=== PATIENT | female | born 1950 | race Caucasian/White ===

== ENCOUNTER 2017-12-22 08:49 | Outpatient (CLI) | payer BC | END 2017-12-22 08:50 | disposition home or self-care (01) | LOC: BICMAMMO 08:49 | PROVIDERS: ATTEND Internal Medicine | DX: Z12.31 Encounter for screening mammogram for malignant neoplasm of breast (principal); Z80.3 Family history of malignant neoplasm of breast | CPT/HCPCS: 77063; 77067 ==

== ENCOUNTER 2019-02-20 08:49 | Outpatient (CLI) | payer MEDICARE ==
--- NOTE | 2019-02-20 10:14 | MMO ---
Bilateral MAMMO Bilat Screen [facility]. CLINICAL HISTORY: Patient is 68 years old and is seen for screening. The patient has the following family history of breast cancer: cousin female, malignant (generic). The patient has no personal history of cancer. The patient has a history of left Stereotatic Biopsy in Nov, 2016 - benign. VIEWS: The views performed were: bilateral craniocaudal with tomosynthesis and bilateral mediolateral oblique with tomosynthesis. FILMS COMPARED: The present examination has been compared to prior imaging studies performed at [facility] on 03/07/2016, 10/21/2016, 05/29/2017 and 12/22/2017. MAMMOGRAM FINDINGS: There are scattered fibroglandular densities. Finding 1: There are stable benign appearing calcifications seen in both breasts. Finding 2: There is a stable biopsy clip seen in the left breast. Finding 3: There are multiple stable nodules of varying size seen in both breasts. There are no suspicious masses, suspicious calcifications, or new areas of architectural distortion. IMPRESSION: THERE IS NO MAMMOGRAPHIC EVIDENCE OF MALIGNANCY. A ROUTINE FOLLOW-UP MAMMOGRAM IN 1 YEAR IS RECOMMENDED. THE RESULTS OF THIS EXAM WERE SENT TO THE PATIENT. ACR BI-RADS Category 2 - Benign finding MAMMOGRAPHY NOTE: 1. A negative mammogram report should not delay a biopsy if a dominant of clinically suspicious mass is present. 2. Approximately 10% to 15% of breast cancers are not detected by mammography. 3. Adenosis and dense breasts may obscure an underlying neoplasm. Reported by: RONNIE CELAYA MD Electonically Signed: [id number]
== END 2019-02-20 08:50 | disposition home or self-care (01) ==
LOC: BICMAMMO 08:49
PROVIDERS: ATTEND Internal Medicine
DX: Z12.31 Encounter for screening mammogram for malignant neoplasm of breast (principal); Z80.3 Family history of malignant neoplasm of breast; Z91.89 Other specified personal risk factors, not elsewhere classified
CPT/HCPCS: 77063; 77067

== ENCOUNTER 2019-09-11 09:39 | Outpatient (CLI) | payer MEDICARE ==
--- NOTE | 2019-09-11 11:46 | BD ---
BONE DENSITOMETRY USING DEXA: Date: 09/11/2019 HISTORY: Postmenopausal screening for osteoporosis. FINDINGS: Lumbar Spine: BMD (g/cm2) L1 0.780 T-Score: -1.9 Z-Score: 0.0 L2 0.797 T-Score: -2.1 Z-Score: 0.0 L3 0.971 T-Score: -1.0 Z-Score: 1.2 L4 0.999 T-Score: -0.6 Z-Score: 1.7 L1-L4 0.891 T-Score: -1.4 Z-Score: 0.8 Femoral Neck: 0.659 T-Score: -1.7 Z-Score: 0.1 Total Femur: 0.869 T-Score: -0.6 Z-Score: 1.0 The 10 year fracture risk for a major osteoporotic fracture is 11% and for a hip fracture is 3%. IMPRESSION: Osteopenia. POS: [facility]
== END 2019-09-11 09:40 | disposition home or self-care (01) ==
LOC: BICMAMMO 09:39
PROVIDERS: ATTEND Internal Medicine
DX: M81.0 Age-related osteoporosis without current pathological fracture (principal); M85.89 Other specified disorders of bone density and structure, multiple sites
CPT/HCPCS: 77080

== ENCOUNTER 2020-03-05 10:12 | Outpatient (CLI) | payer MEDICARE ==
--- NOTE | 2020-03-05 11:13 | MMO ---
Left Breast MAMMO Unilat Diag [facility]. CLINICAL HISTORY: Patient is 69 years old and is seen for additional evaluation requested from prior study. The patient has the following family history of breast cancer: cousin female, malignant (generic). The patient has no personal history of cancer. The patient has a history of left Stereotatic Biopsy in Nov, 2016 - benign. VIEWS: The views performed were: left craniocaudal spot compression magnification; left mediolateral spot compression magnification; and left mediolateral with tomosynthesis. FILMS COMPARED: The present examination has been compared to prior imaging studies performed at [facility] on 05/29/2017, 12/22/2017, 02/20/2019 and 02/24/2020. This study has been interpreted with the assistance of computer-aided detection. MAMMOGRAM FINDINGS: There are scattered fibroglandular densities. There are two groups of amorphous or indistinct calcifications with grouped or clustered distribution seen in the upper-outer region of the left breast. IMPRESSION: CALCIFICATIONS IN THE LEFT BREAST ARE SUSPICIOUS. A STEREOTACTIC BREAST BIOPSY IS RECOMMENDED. 2 GROUPS OF CALCIFICATION 1.3 CM APART , CALCIFICATIONS HAVE INCREASED FINDINGS AND RECOMMENDATIONS WERE DISCUSSED WITH THE PATIENT PRIOR TO LEAVING THE FACILITY. ALL QUESTIONS ANSWERED. THE RESULTS OF THIS EXAM WERE SENT TO THE PATIENT. ACR BI-RADS Category 4 - Suspicious abnormality - biopsy should be considered MAMMOGRAPHY NOTE: 1. A negative mammogram report should not delay a biopsy if a dominant of clinically suspicious mass is present. 2. Approximately 10% to 15% of breast cancers are not detected by mammography. 3. Adenosis and dense breasts may obscure an underlying neoplasm. Reported by: ANGELITA GRIJALVA MD Electonically Signed: [id number]
== END 2020-03-05 10:13 | disposition home or self-care (01) ==
LOC: BICMAMMO 10:12
PROVIDERS: ATTEND Family Medicine
DX: R92.1 Mammographic calcification found on diagnostic imaging of breast (principal)
CPT/HCPCS: 77065; G0279

== ENCOUNTER → 2020-03-11 | Day surgery (SDC) | payer MEDICARE ==
--- NOTE | 2020-03-11 08:56 | MMO ---
PROCEDURE: MAMMO Brst Bx Stereo Left breast biopsy marker clip placement PROVIDED CLINICAL HISTORY: Microcalcifications in the upper outer left breast. Stereotactic guided breast biopsy was recommended . COMPARISON: 03/05/2020 02/24/2020 TECHNIQUE: After informed consent was obtained, the patient was placed on the stereotactic guided breast biopsy table in the prone position. There are 2 clusters of microcalcifications noted in the upper outer left breast. More anteriorly located cluster of microcalcifications were localized utilizing stereota ctic guidance. An area was meticulously prepped and usual fashion. Skin and subcutaneous tissues were infiltrated with buffered 1% lidocaine with epinephrine for local anesthesia. Small skin incision was made. A 10-gauge stereotactic guided breast biopsy needle was advanced followed by additional imaging. The needle was further advanced, and imaging was again perfo rmed. A total of six 10-gauge core needle biopsy specimens were obtained. Specimen mammogram was performed demonstrating multiple microcalcifications within the provided speci men. As result, a biopsy marker clip was deployed at site of biopsy. Needle was removed, and hemostasis was achieved with direct pressure. Post procedure CC and MLO views left breast were performed. These images demonstrate that the biopsy marker clip is located 2.7 cm inferior to the level of microcalcifications. IMPRESSION: 1. Technically successful stereotactic guided biopsy of left breast microcalcifications in the upper outer left breast. More anteriorly located cluster of microcalcifications were localized and biopsied. The more posteriorly located calcifications were not biopsied at this time. 2. Technically successful biopsy marker clip at site of biopsy left breast. As noted above, the biops y clip is located 2.7 cm just inferior to the level of biopsy site and area of previously seen microcalcifications which are decreased in number.
--- NOTE | 2020-03-11 08:57 | MMO ---
EXAM: MAMMO Surgial Specimen left breast PROVIDED CLINICAL HISTORY: Cluster of microcalcifications upper outer left breast. Patient is posterior tenting guided breast bi opsy. COMPARISON: Mammograms on 02/24/2020 and 03/05/2020 as well as stereotactic guided breast biopsy images obtained on this date. FINDINGS/IMPRESSION: Single provided specimen mammogram from stereotactic guided biopsy left breast demonstrates multiple calcifications within the provided specimen.
--- NOTE | 2020-03-11 09:01 | MMO ---
EXAM: MAMMO Diag Post Proc Ltd Lt PROVIDED CLINICAL HISTORY: Patient is post stereotactic guided biopsy of microcalcifications upper outer left breast with biopsy marker clip placement. COMPARISON: 02/24/2020 FINDINGS: Post biopsy changes are seen in the upper outer left breast. Two separate clusters of microcalcificat ions were seen in the upper outer left breast. Biopsy was performed of the more anteriorly located cluster of microcalcifications. There has been interval decrease in number of microcalcifications inv olving the more anteriorly located cluster of microcalcifications in the upper outer left breast. Biopsy marker clip is now seen at site of biopsy. However, the biopsy marker clip is noted to be appr oximately 2.7 cm inferior to the site of biopsy. IMPRESSION: Post biopsy mammogram demonstrates biopsy marker clip in place, but the biopsy marker clip is located 2.7 cm inferior to the level of site of biopsy and previously seen microcalcifications which are now decreased in number.
== END ==
LOC: MAMMO 07:03
PROVIDERS: ATTEND Family Medicine
PROC: 0HBU3ZX Excision of Left Breast, Percutaneous Approach, Diagnostic (ICD-10-PCS; principal; 2020-03-11)
DX: N63.21 Unspecified lump in the left breast, upper outer quadrant (principal); R92.0 Mammographic microcalcification found on diagnostic imaging of breast
CPT/HCPCS: 19081; 76098; 88305

== ENCOUNTER 2021-04-21 09:01 | Outpatient (CLI) | payer MEDICARE | END 2021-04-21 09:02 | disposition home or self-care (01) | LOC: BICMAMMO 09:01 | PROVIDERS: ATTEND Family Medicine | DX: Z12.31 Encounter for screening mammogram for malignant neoplasm of breast (principal); Z91.89 Other specified personal risk factors, not elsewhere classified; Z80.3 Family history of malignant neoplasm of breast | CPT/HCPCS: 77063; 77067 ==

== ENCOUNTER 2022-05-30 08:25 | Outpatient (CLI) | payer MEDICARE | END 2022-05-30 08:26 | disposition home or self-care (01) | LOC: BICMAMMO 08:25 | PROVIDERS: ATTEND Family Medicine | DX: Z12.31 Encounter for screening mammogram for malignant neoplasm of breast (principal); Z91.89 Other specified personal risk factors, not elsewhere classified; Z80.3 Family history of malignant neoplasm of breast | CPT/HCPCS: 77063; 77067 ==

== ENCOUNTER 2023-07-26 12:37 | Outpatient (CLI) | payer MEDICARE | END 2023-07-26 12:38 | disposition home or self-care (01) | LOC: BICMAMMO 12:37 | PROVIDERS: ATTEND Family Medicine | DX: Z12.31 Encounter for screening mammogram for malignant neoplasm of breast (principal); Z80.3 Family history of malignant neoplasm of breast; Z91.89 Other specified personal risk factors, not elsewhere classified | CPT/HCPCS: 77063; 77067 ==